=== PATIENT | male | born 1950 | race African-American/Black ===

== ENCOUNTER 2018-04-14 10:43 | Inpatient (IN) ==
[2018-04-14] MEDS ORDERED: ONDANSETRON 4 MG/2 ML VIAL IV PRN (11:23)
[2018-04-14] MEDS ORDERED: PROMETHAZINE 25 MG/1 ML VIAL IM PRN (11:23)
[2018-04-14] MEDS ORDERED: ACETAMINOPHEN 325 MG TABLET PO PRN (11:23)
[2018-04-14 12:04] LABS: Basophils # 0.1 10*3/uL (0.0-0.2); Basophils % 0.3 % (0.0-0.8); Eosinophils # 0.1 10*3/uL (0.0-0.87); Eosinophils % 0.6 % (0.00-10.9); Hematocrit 37.8 VOL% (42.0-52.0); Hemoglobin 12.6 GM/DL (14.0-18.0); Immature Granulocytes % 1.4 %; Immature Granulocytes Absolute 0.28 #; Lymphocytes # 3.1 10*3/uL (1.4-4.0); Lymphocytes % 15.8 % (21.2-54.2); Mean Corpuscular HGB Conc 33.3 GM/DL (32-36); Mean Corpuscular Hemoglobin 29 PG (27-34); Mean Corpuscular Volume 87.7 FL (87-102); Mean Platelet Volume 11.4 FL (9.6-12.0); Monocytes # 1.4 10*3/uL (0.11-0.8); Monocytes % 7.3 % (1.7-12.7); Neutrophils # 14.5 10*3/uL (1.4-7.4); Neutrophils % 74.6 % (38.7-73.9); Platelet Count 401 T/CUMM (130-400); Red Blood Count 4.31 MC/CUMM (3.8-5.5); Red Cell Distribution Width 13.2 % (9.3-17.3); White Blood Count 19.5 T/CUMM (4-12)
[2018-04-14 12:23] LABS: Band Neutrophils 1 % (0-10); Eosinophils 2 % (0-10); Lymphocytes 22 % (20-55); Segmented Neutrophils 70 % (50-85); Total Cells Counted 100
[2018-04-14 12:24] LABS: Hypochromasia 1+; Ovalocytes Slight; Platelet Estimate Increased
[2018-04-14] MEDS ORDERED: GENTAMICIN INJ 160 MG in SODIUM CHLORIDE 0.9% 100 ML IV SCH (12:30)
[2018-04-14 12:37] LABS: Calcium 9.8 MG/DL (8.5-10.1); Osmolality,Calculated 274.4 MOS/KG (273-304); Potassium 3.5 MMOL/L (3.5-5.1)
[2018-04-14] MEDS ORDERED: GLUCAGON 1 MG VIAL IM PRN (14:27)
[2018-04-14] MEDS ORDERED: DEXTROSE 50% 25 GM/50 ML VIAL IV PRN (14:27)
[2018-04-14] MEDS: SODIUM CHLORIDE 0.9% 1,000 ML IV SCH ×2 (14:41→23:47)
[2018-04-14] MEDS: cefTRIAXone 1,000 MG in SYRINGE 1 EACH IV SCH (15:08)
[2018-04-14] MEDS: GENTAMICIN INJ 360 MG in SODIUM CHLORIDE 0.9% 100 ML IV SCH (15:09)
[2018-04-14] MEDS: INSULIN REGULAR 100 UNIT/ML SUBCUT SCH ×2 (17:01→19:59)
[2018-04-14] MEDS: metFORMIN 500 MG TABLET PO SCH (17:01)
[2018-04-14] MEDS: LISINOPRIL 20 MG TABLET PO SCH (17:01)
[2018-04-14] MEDS: SIMVASTATIN 40 MG TABLET PO SCH (20:25)
[2018-04-14] MEDS: TAMSULOSIN 0.4 MG CAPSULE PO SCH (20:25)
[2018-04-15] MEDS: SODIUM CHLORIDE 0.9% 1,000 ML IV SCH ×2 (05:03→13:19)
[2018-04-15 05:34] LABS: Basophils # 0.1 10*3/uL (0.0-0.2); Basophils % 0.4 % (0.0-0.8); Eosinophils # 0.2 10*3/uL (0.0-0.87); Hematocrit 34.3 VOL% (42.0-52.0); Lymphocytes # 3.1 10*3/uL (1.4-4.0); Mean Corpuscular HGB Conc 32.1 GM/DL (32-36); Mean Corpuscular Hemoglobin 28 PG (27-34); Mean Corpuscular Volume 87.7 FL (87-102); Mean Platelet Volume 11.5 FL (9.6-12.0); Monocytes # 1.6 10*3/uL (0.11-0.8); Monocytes % 7.9 % (1.7-12.7); Neutrophils # 14.5 10*3/uL (1.4-7.4); Neutrophils % 73.7 % (38.7-73.9); Platelet Count 419 T/CUMM (130-400); Red Blood Count 3.91 MC/CUMM (3.8-5.5); Red Cell Distribution Width 13.2 % (9.3-17.3); White Blood Count 19.6 T/CUMM (4-12)
[2018-04-15 05:58] LABS: Calcium 9.2 MG/DL (8.5-10.1); Osmolality,Calculated 274.8 MOS/KG (273-304); Potassium 3.3 MMOL/L (3.5-5.1)
[2018-04-15 06:03] LABS: Hypochromasia 1+
[2018-04-15 06:04] LABS: Microcytosis 1+; Platelet Estimate Increased
[2018-04-15] MEDS: INSULIN REGULAR 100 UNIT/ML SUBCUT SCH ×4 (08:28→22:45)
[2018-04-15] MEDS: TAMSULOSIN 0.4 MG CAPSULE PO SCH ×2 (10:09→20:22)
[2018-04-15] MEDS: metFORMIN 500 MG TABLET PO SCH ×2 (10:09→18:14)
[2018-04-15] MEDS: PANTOPRAZOLE 40 MG TABLET PO SCH (10:09)
[2018-04-15] MEDS: hydroCHLOROthiazide 25 MG TABLET PO SCH (10:10)
[2018-04-15] MEDS: KETOROLAC 15 MG/1 ML VIAL IV PRN ×2 (10:11→18:15)
[2018-04-15] MEDS: POTASSIUM CHLORIDE 20 MEQ TABLET PO PRN ×3 (10:18→14:43)
[2018-04-15] MEDS: cefTRIAXone 1,000 MG in SYRINGE 1 EACH IV SCH (13:20)
[2018-04-15] MEDS: GENTAMICIN INJ 360 MG in SODIUM CHLORIDE 0.9% 100 ML IV SCH (14:43)
[2018-04-15] MEDS: LISINOPRIL 20 MG TABLET PO SCH (18:14)
[2018-04-15] MEDS: SIMVASTATIN 40 MG TABLET PO SCH (20:22)
[2018-04-16] MEDS: SODIUM CHLORIDE 0.9% 1,000 ML IV SCH ×3 (01:41→21:20)
[2018-04-16 05:17] LABS: Basophils # 0.1 10*3/uL (0.0-0.2); Basophils % 0.3 % (0.0-0.8); Eosinophils # 0.2 10*3/uL (0.0-0.87); Eosinophils % 1.1 % (0.00-10.9); Hemoglobin 10.7 GM/DL (14.0-18.0); Immature Granulocytes % 0.8 %; Immature Granulocytes Absolute 0.14 #; Lymphocytes # 2.6 10*3/uL (1.4-4.0); Lymphocytes % 15.1 % (21.2-54.2); Mean Corpuscular HGB Conc 32.4 GM/DL (32-36); Mean Corpuscular Hemoglobin 29 PG (27-34); Mean Platelet Volume 10.8 FL (9.6-12.0); Monocytes # 0.9 10*3/uL (0.11-0.8); Neutrophils # 13.4 10*3/uL (1.4-7.4); Neutrophils % 77.7 % (38.7-73.9); Platelet Count 474 T/CUMM (130-400); Red Blood Count 3.75 MC/CUMM (3.8-5.5); Red Cell Distribution Width 13.2 % (9.3-17.3); White Blood Count 17.3 T/CUMM (4-12)
[2018-04-16 05:49] LABS: Osmolality,Calculated 281.3 MOS/KG (273-304); Potassium 3.8 MMOL/L (3.5-5.1)
[2018-04-16] MEDS: INSULIN REGULAR 100 UNIT/ML SUBCUT SCH ×4 (08:37→21:20)
[2018-04-16] MEDS ORDERED: cefTRIAXone 1,000 MG VIAL ONE (14:25)
[2018-04-16] MEDS ORDERED: BACITRACIN OINT 0.9 GM PACK TOP ONE (15:49)
[2018-04-16 16:08] LABS: Apearance,Urine Slightly Hazy (Clear); Bacteria,Urine Occasional /HPF (Few); Bilirubin,Urine Negative (Negative); Blood, Urine Moderate mg/dL (Negative); Glucose,Urine (UA) Negative (Negative); Ketones,Urine 20 mg/dL (Negative); Mucus,Urine Occasional /LPF (Occasional); Nitrite,Urine Negative (Negative); Protein,Urine Negative; RBC,Urine 3 /HPF (0-4); Urine Color Yellow (Yellow); Urine Specific Gravity 1.011 (1.001-1.035); Urine Urobilinogen < 2.0 EU/DL (0.2-1.0); WBC,Urine 51 /HPF (0-6)
[2018-04-16] MEDS ORDERED: ONDANSETRON 4 MG/2 ML VIAL ONE (16:11)
[2018-04-16] MEDS ORDERED: ONDANSETRON 4 MG/2 ML VIAL IV PRN (16:11)
[2018-04-16] MEDS ORDERED: HYDROmorphone 2 MG/1 ML VIAL ONE (16:11)
[2018-04-16] MEDS: HYDROmorphone 2 MG/1 ML VIAL IV PRN ×2 (16:14→16:24)
[2018-04-16] MEDS ORDERED: PROPOFOL 200 MG/20 ML VIAL IV ONE (16:54)
[2018-04-16] MEDS ORDERED: SEVOFLURANE 1 UNIT/15 MINUTE INH ONE (16:54)
[2018-04-16] MEDS ORDERED: KETOROLAC 30 MG/1 ML VIAL ONE (16:54)
[2018-04-16] MEDS ORDERED: fentaNYL 100 MCG/2 ML VIAL ONE (16:54)
[2018-04-16] MEDS ORDERED: MIDAZOLAM 2 MG/2 ML VIAL ONE (16:56)
[2018-04-16] MEDS: TAMSULOSIN 0.4 MG CAPSULE PO SCH ×2 (17:24→20:56)
[2018-04-16] MEDS: metFORMIN 500 MG TABLET PO SCH ×2 (17:24→17:40)
[2018-04-16] MEDS: PANTOPRAZOLE 40 MG TABLET PO SCH (17:24)
[2018-04-16] MEDS: hydroCHLOROthiazide 25 MG TABLET PO SCH (17:24)
[2018-04-16] MEDS: GENTAMICIN INJ 360 MG in SODIUM CHLORIDE 0.9% 100 ML IV SCH (17:39)
[2018-04-16] MEDS: cefTRIAXone 1,000 MG in SYRINGE 1 EACH IV SCH (17:39)
[2018-04-16] MEDS: FLUCONAZOLE 100 MG TABLET PO SCH (17:40)
[2018-04-16] MEDS: LISINOPRIL 20 MG TABLET PO SCH (17:40)
[2018-04-16] MEDS ORDERED: GLUCAGON 1 MG VIAL IM PRN (18:49)
[2018-04-16] MEDS ORDERED: DEXTROSE 50% 25 GM/50 ML VIAL IV PRN (18:49)
[2018-04-16] MEDS: SIMVASTATIN 40 MG TABLET PO SCH (20:56)
[2018-04-17] MEDS: SODIUM CHLORIDE 0.9% 1,000 ML IV SCH ×4 (02:24→19:58)
[2018-04-17 04:38] LABS: Basophils % 0.3 % (0.0-0.8); Eosinophils # 0.3 10*3/uL (0.0-0.87); Eosinophils % 1.6 % (0.00-10.9); Hematocrit 31.2 VOL% (42.0-52.0); Hemoglobin 10.2 GM/DL (14.0-18.0); Immature Granulocytes % 0.6 %; Immature Granulocytes Absolute 0.09 #; Lymphocytes # 1.9 10*3/uL (1.4-4.0); Mean Corpuscular HGB Conc 32.7 GM/DL (32-36); Mean Corpuscular Hemoglobin 29 PG (27-34); Mean Corpuscular Volume 87.6 FL (87-102); Mean Platelet Volume 10.5 FL (9.6-12.0); Monocytes # 0.5 10*3/uL (0.11-0.8); Monocytes % 3.3 % (1.7-12.7); Neutrophils # 12.8 10*3/uL (1.4-7.4); Neutrophils % 82.2 % (38.7-73.9); Platelet Count 491 T/CUMM (130-400); Red Blood Count 3.56 MC/CUMM (3.8-5.5); White Blood Count 15.6 T/CUMM (4-12)
[2018-04-17 05:10] LABS: Calcium 8.4 MG/DL (8.5-10.1); Osmolality,Calculated 273.7 MOS/KG (273-304); Potassium 3.8 MMOL/L (3.5-5.1)
[2018-04-17] MEDS: metFORMIN 500 MG TABLET PO SCH ×2 (09:28→17:28)
[2018-04-17] MEDS: FLUCONAZOLE 100 MG TABLET PO SCH (09:29)
[2018-04-17] MEDS: INSULIN REGULAR 100 UNIT/ML SUBCUT SCH ×4 (09:29→20:37)
[2018-04-17] MEDS: hydroCHLOROthiazide 25 MG TABLET PO SCH (09:29)
[2018-04-17] MEDS: TAMSULOSIN 0.4 MG CAPSULE PO SCH ×2 (09:29→20:37)
[2018-04-17] MEDS: PANTOPRAZOLE 40 MG TABLET PO SCH (09:29)
[2018-04-17] MEDS: CEFEPIME 1,000 MG in SYRINGE 1 EACH IV SCH ×2 (10:05→17:28)
[2018-04-17] MEDS: VANCOMYCIN INJ 1,250 MG in SODIUM CHLORIDE 0.9% 250 ML IV SCH (16:28)
[2018-04-17] MEDS: LISINOPRIL 20 MG TABLET PO SCH (17:28)
[2018-04-17] MEDS: BACITRACIN OINT 0.9 GM PACK TOP SCH (17:28)
[2018-04-17] MEDS: SIMVASTATIN 40 MG TABLET PO SCH (20:37)
[2018-04-18] MEDS: CEFEPIME 1,000 MG in SYRINGE 1 EACH IV SCH ×3 (02:13→17:23)
[2018-04-18] MEDS: VANCOMYCIN INJ 1,250 MG in SODIUM CHLORIDE 0.9% 250 ML IV SCH ×2 (02:13→15:44)
[2018-04-18 04:27] LABS: Basophils # 0.1 10*3/uL (0.0-0.2); Basophils % 0.4 % (0.0-0.8); Eosinophils # 0.5 10*3/uL (0.0-0.87); Eosinophils % 2.6 % (0.00-10.9); Hematocrit 29.8 VOL% (42.0-52.0); Hemoglobin 9.8 GM/DL (14.0-18.0); Immature Granulocytes % 0.5 %; Immature Granulocytes Absolute 0.09 #; Lymphocytes # 1.9 10*3/uL (1.4-4.0); Lymphocytes % 10.7 % (21.2-54.2); Mean Corpuscular HGB Conc 32.9 GM/DL (32-36); Mean Corpuscular Hemoglobin 28 PG (27-34); Mean Corpuscular Volume 86.1 FL (87-102); Mean Platelet Volume 10.4 FL (9.6-12.0); Monocytes # 0.7 10*3/uL (0.11-0.8); Neutrophils # 14.3 10*3/uL (1.4-7.4); Neutrophils % 81.8 % (38.7-73.9); Platelet Count 496 T/CUMM (130-400); Red Blood Count 3.46 MC/CUMM (3.8-5.5); White Blood Count 17.5 T/CUMM (4-12)
[2018-04-18 04:50] LABS: Calcium 8.3 MG/DL (8.5-10.1); Osmolality,Calculated 270.8 MOS/KG (273-304); Potassium 3.3 MMOL/L (3.5-5.1)
[2018-04-18] MEDS: SODIUM CHLORIDE 0.9% 1,000 ML IV SCH ×2 (06:50→15:44)
[2018-04-18] MEDS: INSULIN REGULAR 100 UNIT/ML SUBCUT SCH ×4 (07:45→21:37)
[2018-04-18] MEDS: metFORMIN 500 MG TABLET PO SCH ×2 (09:10→17:23)
[2018-04-18] MEDS: TAMSULOSIN 0.4 MG CAPSULE PO SCH ×2 (09:10→21:36)
[2018-04-18] MEDS: hydroCHLOROthiazide 25 MG TABLET PO SCH (09:10)
[2018-04-18] MEDS: PANTOPRAZOLE 40 MG TABLET PO SCH (09:10)
[2018-04-18] MEDS: FLUCONAZOLE 100 MG TABLET PO SCH (09:10)
[2018-04-18] MEDS: BACITRACIN OINT 0.9 GM PACK TOP SCH (09:10)
[2018-04-18] MEDS: LISINOPRIL 20 MG TABLET PO SCH (17:23)
[2018-04-18] MEDS: SIMVASTATIN 40 MG TABLET PO SCH (21:36)
[2018-04-19] MEDS: SODIUM CHLORIDE 0.9% 1,000 ML IV SCH ×5 (00:01→20:42)
[2018-04-19] MEDS: CEFEPIME 1,000 MG in SYRINGE 1 EACH IV SCH ×3 (02:09→18:33)
[2018-04-19] MEDS: VANCOMYCIN INJ 1,250 MG in SODIUM CHLORIDE 0.9% 250 ML IV SCH (02:14)
[2018-04-19 02:43] LABS: Basophils # 0.1 10*3/uL (0.0-0.2); Basophils % 0.4 % (0.0-0.8); Eosinophils # 0.5 10*3/uL (0.0-0.87); Eosinophils % 4.3 % (0.00-10.9); Hematocrit 28.6 VOL% (42.0-52.0); Hemoglobin 9.4 GM/DL (14.0-18.0); Immature Granulocytes % 0.5 %; Immature Granulocytes Absolute 0.06 #; Lymphocytes # 1.9 10*3/uL (1.4-4.0); Lymphocytes % 15.3 % (21.2-54.2); Mean Corpuscular HGB Conc 32.9 GM/DL (32-36); Mean Corpuscular Hemoglobin 28 PG (27-34); Mean Corpuscular Volume 85.9 FL (87-102); Mean Platelet Volume 10.5 FL (9.6-12.0); Monocytes # 0.6 10*3/uL (0.11-0.8); Monocytes % 4.5 % (1.7-12.7); Neutrophils # 9.4 10*3/uL (1.4-7.4); Platelet Count 512 T/CUMM (130-400); Red Blood Count 3.33 MC/CUMM (3.8-5.5); Red Cell Distribution Width 12.9 % (9.3-17.3); White Blood Count 12.6 T/CUMM (4-12)
[2018-04-19 03:12] LABS: Calcium 8.3 MG/DL (8.5-10.1); Osmolality,Calculated 273.7 MOS/KG (273-304); Potassium 3.2 MMOL/L (3.5-5.1)
[2018-04-19] MEDS: POTASSIUM CHLORIDE 20 MEQ TABLET PO PRN ×4 (04:20→16:29)
[2018-04-19] MEDS: metFORMIN 500 MG TABLET PO SCH ×2 (09:17→17:12)
[2018-04-19] MEDS: PANTOPRAZOLE 40 MG TABLET PO SCH (09:18)
[2018-04-19] MEDS: hydroCHLOROthiazide 25 MG TABLET PO SCH (09:18)
[2018-04-19] MEDS: TAMSULOSIN 0.4 MG CAPSULE PO SCH ×2 (09:18→20:44)
[2018-04-19] MEDS: BACITRACIN OINT 0.9 GM PACK TOP SCH (09:18)
[2018-04-19] MEDS: FLUCONAZOLE 100 MG TABLET PO SCH (09:18)
[2018-04-19] MEDS: INSULIN REGULAR 100 UNIT/ML SUBCUT SCH ×3 (10:49→16:48)
[2018-04-19] MEDS: CIPROFLOXACIN INJ 400 MG in PREMIX 1 EACH IV SCH (16:28)
[2018-04-19] MEDS: LISINOPRIL 20 MG TABLET PO SCH (17:12)
[2018-04-19] MEDS: SIMVASTATIN 40 MG TABLET PO SCH (20:45)
[2018-04-20] MEDS: INSULIN REGULAR 100 UNIT/ML SUBCUT SCH ×4 (01:22→15:43)
[2018-04-20] MEDS: CEFEPIME 1,000 MG in SYRINGE 1 EACH IV SCH ×3 (03:48→17:49)
[2018-04-20] MEDS: CIPROFLOXACIN INJ 400 MG in PREMIX 1 EACH IV SCH ×2 (03:51→14:06)
[2018-04-20 05:31] LABS: Basophils # 0.1 10*3/uL (0.0-0.2); Basophils % 0.5 % (0.0-0.8); Eosinophils # 0.5 10*3/uL (0.0-0.87); Eosinophils % 5.5 % (0.00-10.9); Hemoglobin 9.8 GM/DL (14.0-18.0); Immature Granulocytes % 0.5 %; Immature Granulocytes Absolute 0.05 #; Lymphocytes # 1.8 10*3/uL (1.4-4.0); Lymphocytes % 18.9 % (21.2-54.2); Mean Corpuscular HGB Conc 32.7 GM/DL (32-36); Mean Corpuscular Hemoglobin 29 PG (27-34); Mean Corpuscular Volume 87.5 FL (87-102); Mean Platelet Volume 10.7 FL (9.6-12.0); Monocytes # 0.6 10*3/uL (0.11-0.8); Monocytes % 6.7 % (1.7-12.7); Neutrophils # 6.5 10*3/uL (1.4-7.4); Neutrophils % 67.9 % (38.7-73.9); Platelet Count 537 T/CUMM (130-400); Red Blood Count 3.43 MC/CUMM (3.8-5.5); Red Cell Distribution Width 12.9 % (9.3-17.3); White Blood Count 9.5 T/CUMM (4-12)
[2018-04-20 05:54] LABS: Calcium 8.7 MG/DL (8.5-10.1); Osmolality,Calculated 274.7 MOS/KG (273-304); Potassium 3.7 MMOL/L (3.5-5.1)
[2018-04-20] MEDS: SODIUM CHLORIDE 0.9% 1,000 ML IV SCH ×4 (06:12→17:53)
[2018-04-20] MEDS: metFORMIN 500 MG TABLET PO SCH ×2 (08:04→16:57)
[2018-04-20] MEDS: TAMSULOSIN 0.4 MG CAPSULE PO SCH ×2 (08:04→21:00)
[2018-04-20] MEDS: POTASSIUM CHLORIDE 20 MEQ TABLET PO SCH (08:04)
[2018-04-20] MEDS: BACITRACIN OINT 0.9 GM PACK TOP SCH (08:05)
[2018-04-20] MEDS: PANTOPRAZOLE 40 MG TABLET PO SCH (08:05)
[2018-04-20] MEDS: hydroCHLOROthiazide 25 MG TABLET PO SCH (08:05)
[2018-04-20] MEDS: LISINOPRIL 20 MG TABLET PO SCH (16:58)
[2018-04-20] MEDS: SIMVASTATIN 40 MG TABLET PO SCH (21:00)
[2018-04-21] MEDS: INSULIN REGULAR 100 UNIT/ML SUBCUT SCH ×5 (03:17→21:53)
[2018-04-21] MEDS: CIPROFLOXACIN INJ 400 MG in PREMIX 1 EACH IV SCH (04:07)
[2018-04-21] MEDS: CEFEPIME 1,000 MG in SYRINGE 1 EACH IV SCH (04:07)
[2018-04-21] MEDS: SODIUM CHLORIDE 0.9% 1,000 ML IV SCH ×3 (04:07→21:54)
[2018-04-21 04:23] LABS: Basophils # 0.1 10*3/uL (0.0-0.2); Basophils % 0.7 % (0.0-0.8); Eosinophils # 0.5 10*3/uL (0.0-0.87); Eosinophils % 5.2 % (0.00-10.9); Hemoglobin 10.4 GM/DL (14.0-18.0); Immature Granulocytes % 0.6 %; Immature Granulocytes Absolute 0.05 #; Lymphocytes # 1.8 10*3/uL (1.4-4.0); Lymphocytes % 20.6 % (21.2-54.2); Mean Corpuscular HGB Conc 32.5 GM/DL (32-36); Mean Corpuscular Hemoglobin 28 PG (27-34); Mean Corpuscular Volume 87.2 FL (87-102); Mean Platelet Volume 11.4 FL (9.6-12.0); Monocytes # 0.5 10*3/uL (0.11-0.8); Monocytes % 5.7 % (1.7-12.7); Neutrophils # 5.9 10*3/uL (1.4-7.4); Neutrophils % 67.2 % (38.7-73.9); Platelet Count 442 T/CUMM (130-400); Red Blood Count 3.67 MC/CUMM (3.8-5.5); Red Cell Distribution Width 13.1 % (9.3-17.3); White Blood Count 8.7 T/CUMM (4-12)
[2018-04-21 04:24] LABS: Basophils # 0.1 10*3/uL (0.0-0.2); Basophils % 0.6 % (0.0-0.8); Eosinophils # 0.5 10*3/uL (0.0-0.87); Eosinophils % 5.5 % (0.00-10.9); Hematocrit 31.6 VOL% (42.0-52.0); Hemoglobin 10.4 GM/DL (14.0-18.0); Immature Granulocytes % 0.4 %; Immature Granulocytes Absolute 0.03 #; Lymphocytes # 1.9 10*3/uL (1.4-4.0); Mean Corpuscular HGB Conc 32.9 GM/DL (32-36); Mean Corpuscular Hemoglobin 29 PG (27-34); Mean Corpuscular Volume 86.6 FL (87-102); Mean Platelet Volume 10.1 FL (9.6-12.0); Monocytes # 0.4 10*3/uL (0.11-0.8); Neutrophils # 5.6 10*3/uL (1.4-7.4); Neutrophils % 66.5 % (38.7-73.9); Platelet Count 569 T/CUMM (130-400); Red Blood Count 3.65 MC/CUMM (3.8-5.5); Red Cell Distribution Width 12.9 % (9.3-17.3); White Blood Count 8.4 T/CUMM (4-12)
[2018-04-21 04:43] LABS: Calcium 9.1 MG/DL (8.5-10.1); Osmolality,Calculated 273.7 MOS/KG (273-304); Potassium 3.8 MMOL/L (3.5-5.1)
[2018-04-21 04:45] LABS: % Iron Saturation 15.2 % (18-50)
[2018-04-21 04:54] LABS: Vitamin B12 460 PG/ML (211-911)
[2018-04-21 08:35] LABS: Sedimentation Rate-Westergren 114 MM/HR (0-20)
[2018-04-21] MEDS: TAMSULOSIN 0.4 MG CAPSULE PO SCH ×2 (08:50→21:52)
[2018-04-21] MEDS: metFORMIN 500 MG TABLET PO SCH ×2 (08:50→17:18)
[2018-04-21] MEDS: BACITRACIN OINT 0.9 GM PACK TOP SCH (08:50)
[2018-04-21] MEDS: POTASSIUM CHLORIDE 20 MEQ TABLET PO SCH (08:50)
[2018-04-21] MEDS: hydroCHLOROthiazide 25 MG TABLET PO SCH (08:50)
[2018-04-21] MEDS: PANTOPRAZOLE 40 MG TABLET PO SCH (08:50)
[2018-04-21] MEDS: LEVOFLOXACIN 750 MG TABLET PO SCH (08:51)
[2018-04-21] MEDS: CHOLECALCIFEROL 1,000 UNIT TABLET PO SCH (09:20)
[2018-04-21] MEDS: MAGNESIUM CHLORIDE 64 MG TABLET PO SCH (09:20)
[2018-04-21] MEDS: FERROUS SULFATE ER 140 MG TABLET PO SCH (11:18)
[2018-04-21 11:52] LABS: Hemoglobin A1 (Alkaline) 97.3 % (96.5-98.5); Hemoglobin A2 (Alkaline) 2.7 % (1.5-3.5)
[2018-04-21] MEDS: LISINOPRIL 20 MG TABLET PO SCH (17:18)
[2018-04-21] MEDS: SIMVASTATIN 40 MG TABLET PO SCH (21:52)
[2018-04-22 05:27] LABS: Basophils # 0.1 10*3/uL (0.0-0.2); Basophils % 0.5 % (0.0-0.8); Eosinophils # 0.5 10*3/uL (0.0-0.87); Eosinophils % 5.5 % (0.00-10.9); Hematocrit 29.3 VOL% (42.0-52.0); Hemoglobin 9.5 GM/DL (14.0-18.0); Immature Granulocytes % 0.2 %; Immature Granulocytes Absolute 0.02 #; Lymphocytes # 2.2 10*3/uL (1.4-4.0); Mean Corpuscular HGB Conc 32.4 GM/DL (32-36); Mean Corpuscular Hemoglobin 28 PG (27-34); Mean Corpuscular Volume 86.9 FL (87-102); Mean Platelet Volume 10.7 FL (9.6-12.0); Monocytes # 0.6 10*3/uL (0.11-0.8); Monocytes % 6.1 % (1.7-12.7); Neutrophils # 6.1 10*3/uL (1.4-7.4); Neutrophils % 64.7 % (38.7-73.9); Platelet Count 593 T/CUMM (130-400); Red Blood Count 3.37 MC/CUMM (3.8-5.5); White Blood Count 9.5 T/CUMM (4-12)
[2018-04-22 05:52] LABS: Eosinophils 4 % (0-10); Hypochromasia Slight; Lymphocytes 17 % (20-55); Platelet Estimate Normal; Segmented Neutrophils 77 % (50-85); Total Cells Counted 100
[2018-04-22 05:57] LABS: Calcium 9.1 MG/DL (8.5-10.1); Osmolality,Calculated 271.8 MOS/KG (273-304); Potassium 3.7 MMOL/L (3.5-5.1)
[2018-04-22] MEDS: SODIUM CHLORIDE 0.9% 1,000 ML IV SCH (07:02)
[2018-04-22] MEDS ORDERED: MAGNESIUM SULF RIDER 2 GM in PREMIX 1 EACH IV ONE (09:00)
[2018-04-22] MEDS: INSULIN REGULAR 100 UNIT/ML SUBCUT SCH (09:11)
[2018-04-22] MEDS: LEVOFLOXACIN 750 MG TABLET PO SCH (09:11)
[2018-04-22] MEDS: metFORMIN 500 MG TABLET PO SCH (09:11)
[2018-04-22] MEDS: CHOLECALCIFEROL 1,000 UNIT TABLET PO SCH (09:11)
[2018-04-22] MEDS: TAMSULOSIN 0.4 MG CAPSULE PO SCH (09:11)
[2018-04-22] MEDS: FERROUS SULFATE ER 140 MG TABLET PO SCH (09:11)
[2018-04-22] MEDS: hydroCHLOROthiazide 25 MG TABLET PO SCH (09:11)
[2018-04-22] MEDS: BACITRACIN OINT 0.9 GM PACK TOP SCH (09:11)
[2018-04-22] MEDS: MAGNESIUM CHLORIDE 64 MG TABLET PO SCH (09:11)
[2018-04-22] MEDS: PANTOPRAZOLE 40 MG TABLET PO SCH (09:12)
[2018-04-22] MEDS: POTASSIUM CHLORIDE 20 MEQ TABLET PO SCH (09:12)
[2018-04-22 11:43] VITALS: BP 121/65
== END 2018-04-22 11:55 | disposition home or self-care (01) | DRG 711 ==
LOC: N.5E 11:01
PROVIDERS: ADMIT Surgery; ATTEND Surgery

== ENCOUNTER 2018-11-26 05:22 | Inpatient (IN) ==
[2018-11-18 11:49] LABS: Basophils # 0.1 10*3/uL (0.0-0.2); Basophils % 0.6 % (0.0-0.8); Eosinophils # 0.2 10*3/uL (0.0-0.87); Eosinophils % 2.7 % (0.00-10.9); Hematocrit 38.5 VOL% (42.0-52.0); Hemoglobin 12.7 GM/DL (14.0-18.0); Immature Granulocytes % 0.3 %; Immature Granulocytes Absolute 0.02 #; Lymphocytes # 3.4 10*3/uL (1.4-4.0); Lymphocytes % 43.9 % (21.2-54.2); Mean Corpuscular Volume 89.7 FL (87-102); Mean Platelet Volume 10.9 FL (9.6-12.0); Monocytes % 6.2 % (1.7-12.7); Neutrophils % 46.3 % (38.7-73.9); Platelet Count 241 T/CUMM (130-400); Red Blood Count 4.29 MC/CUMM (3.8-5.5); Red Cell Distribution Width 13.2 % (9.3-17.3); White Blood Count 7.7 T/CUMM (4-12)
[2018-11-18 12:18] LABS: Albumin 3.8 G/DL (3.4-5.0); Bilirubin,Total 0.5 MG/DL (0.2-1.0); Calcium 9.6 MG/DL (8.5-10.1); Osmolality,Calculated 276.4 MOS/KG (273-304)
[2018-11-26] MEDS ORDERED: cefTRIAXone 1,000 MG in SYRINGE 1 EACH IV ONE ×2 (06:00→14:30)
[2018-11-26] MEDS ORDERED: cefTRIAXone 1,000 MG VIAL ONE (06:01)
[2018-11-26] MEDS ORDERED: INDOCYANINE GREEN 25 MG VIAL IV ONE (06:17)
[2018-11-26] MEDS ORDERED: MANNITOL 12.5 GM/50 ML VIAL IV ONE (06:29)
[2018-11-26] MEDS ORDERED: DIAZEPAM 5 MG TABLET PO ONE (06:29)
[2018-11-26] MEDS ORDERED: FAMOTIDINE 20 MG TABLET PO ONE (06:29)
[2018-11-26] MEDS ORDERED: LACTATED RINGERS 1,000 ML IV SCH (06:30)
[2018-11-26] MEDS ORDERED: DIAZEPAM 5 MG TABLET ONE (06:48)
[2018-11-26] MEDS ORDERED: FAMOTIDINE 20 MG TABLET ONE (06:49)
[2018-11-26] MEDS ORDERED: BUPIVACAINE 0.5% 50 ML VIAL ONE (08:03)
[2018-11-26] MEDS ORDERED: SUGAMMADEX 200 MG/2 ML VIAL IV ONE (12:06)
[2018-11-26] MEDS ORDERED: MAGNESIUM HYDROXIDE SUSP 30 ML UDCUP PO PRN (12:35)
[2018-11-26] MEDS ORDERED: LACTULOSE 20 GM/30 ML UDCUP PO PRN (12:35)
[2018-11-26] MEDS ORDERED: HYDROmorphone 2 MG/1 ML VIAL IV PRN (12:35)
[2018-11-26] MEDS ORDERED: PROMETHAZINE 25 MG/1 ML VIAL IM PRN (12:35)
[2018-11-26 12:36] LABS: Apearance,Urine CLEAR (Clear); Bilirubin,Urine Negative (Negative); Blood, Urine Negative (Negative); Glucose,Urine (UA) Negative (Negative); Ketones,Urine Negative (Negative); Mucus,Urine Occasional /LPF (Occasional); Nitrite,Urine Negative (Negative); Protein,Urine Negative; RBC,Urine 1 /HPF (0-4); Squamous Epithelial Cell,Urine Occasional /HPF (0-10); Urine Color Yellow (Yellow); Urine Specific Gravity 1.017 (1.001-1.035); WBC,Urine <1 /HPF (0-6)
[2018-11-26] MEDS ORDERED: ALBUTEROL/IPRATROPIUM 3 ML NEB RESP TX PRN (12:47)
[2018-11-26] MEDS ORDERED: PHENYLEPHRINE DRIP 20 MG/250 ML PREMIX IV ONE (12:53)
[2018-11-26] MEDS ORDERED: PROPOFOL 200 MG/20 ML VIAL IV ONE (12:53)
[2018-11-26] MEDS ORDERED: ONDANSETRON 4 MG/2 ML VIAL ONE (12:54)
[2018-11-26] MEDS ORDERED: ePHEDrine 50 MG/ML AMP ONE (12:54)
[2018-11-26] MEDS ORDERED: DEXAMETHASONE 4 MG/1 ML VIAL ONE (12:54)
[2018-11-26] MEDS ORDERED: PHENYLEPHRINE 1 MG/10 ML SYRINGE IV ONE (12:55)
[2018-11-26] MEDS ORDERED: ROCURONIUM 100 MG/10 ML VIAL IV ONE (12:55)
[2018-11-26] MEDS ORDERED: ACETAMINOPHEN 1,000 MG/100 ML VIAL IV ONE (12:56)
[2018-11-26] MEDS ORDERED: LACTATED RINGERS 2,000 ML IV ONE (12:56)
[2018-11-26] MEDS ORDERED: SEVOFLURANE 1 UNIT/15 MINUTE INH ONE (12:56)
[2018-11-26 13:40] LABS: Basophils % 0.3 % (0.0-0.8); Eosinophils % 0.1 % (0.00-10.9); Hematocrit 41.1 VOL% (42.0-52.0); Hemoglobin 12.9 GM/DL (14.0-18.0); Immature Granulocytes % 0.4 %; Immature Granulocytes Absolute 0.05 #; Lymphocytes # 1.6 10*3/uL (1.4-4.0); Mean Corpuscular HGB Conc 31.4 GM/DL (32-36); Mean Corpuscular Volume 91.1 FL (87-102); Mean Platelet Volume 10.5 FL (9.6-12.0); Monocytes % 2.2 % (1.7-12.7); Platelet Count 233 T/CUMM (130-400); Red Blood Count 4.51 MC/CUMM (3.8-5.5); White Blood Count 13.4 T/CUMM (4-12)
[2018-11-26] MEDS: ONDANSETRON 4 MG/2 ML VIAL IV PRN ×2 (13:55→18:04)
[2018-11-26 13:59] LABS: Calcium 9.4 MG/DL (8.5-10.1); Osmolality,Calculated 279.8 MOS/KG (273-304)
[2018-11-26] MEDS ORDERED: hydrALAZINE 25 MG TABLET PO PRN (14:19)
[2018-11-26] MEDS ORDERED: SIMETHICONE CHEW 80 MG TABLET PO PRN (14:19)
[2018-11-26] MEDS ORDERED: diphenhydrAMINE 50 MG/1 ML VIAL IV PRN (14:19)
[2018-11-26] MEDS: ACETAMINOPHEN 325 MG TABLET PO SCH ×2 (15:10→20:17)
[2018-11-26] MEDS: SODIUM CHLORIDE 0.9% 1,000 ML IV SCH ×2 (15:10→23:03)
[2018-11-26] MEDS ORDERED: DEXTROSE 50% 25 GM/50 ML VIAL IV PRN (15:47)
[2018-11-26] MEDS ORDERED: GLUCAGON 1 MG VIAL IM PRN (15:47)
[2018-11-26] MEDS: LISINOPRIL 20 MG TABLET PO SCH (17:18)
[2018-11-26] MEDS: INSULIN NPH/REGULAR 70/30 100 UNIT/ML SUBCUT SCH (17:18)
[2018-11-26] MEDS: INSULIN REGULAR 100 UNIT/ML SUBCUT SCH ×2 (17:18→20:17)
[2018-11-26] MEDS: DOCUSATE SODIUM 100 MG CAPSULE PO SCH (20:17)
[2018-11-26] MEDS: SIMVASTATIN 40 MG TABLET PO SCH (20:17)
[2018-11-27] MEDS: ACETAMINOPHEN 325 MG TABLET PO SCH ×4 (03:37→21:22)
[2018-11-27 04:44] LABS: Basophils # 0.1 10*3/uL (0.0-0.2); Basophils % 0.5 % (0.0-0.8); Eosinophils # 0.2 10*3/uL (0.0-0.87); Eosinophils % 1.6 % (0.00-10.9); Hematocrit 35.8 VOL% (42.0-52.0); Hemoglobin 11.7 GM/DL (14.0-18.0); Immature Granulocytes % 0.2 %; Immature Granulocytes Absolute 0.02 #; Lymphocytes # 1.5 10*3/uL (1.4-4.0); Lymphocytes % 14.4 % (21.2-54.2); Mean Corpuscular HGB Conc 32.7 GM/DL (32-36); Mean Corpuscular Volume 89.9 FL (87-102); Mean Platelet Volume 11.8 FL (9.6-12.0); Monocytes % 6.4 % (1.7-12.7); Neutrophils % 76.9 % (38.7-73.9); Platelet Count 223 T/CUMM (130-400); Red Blood Count 3.98 MC/CUMM (3.8-5.5); Red Cell Distribution Width 12.9 % (9.3-17.3); White Blood Count 10.2 T/CUMM (4-12)
[2018-11-27 05:16] LABS: Calcium 8.8 MG/DL (8.5-10.1); Osmolality,Calculated 285.1 MOS/KG (273-304)
[2018-11-27] MEDS: SODIUM CHLORIDE 0.9% 1,000 ML IV SCH (07:24)
[2018-11-27] MEDS: INSULIN REGULAR 100 UNIT/ML SUBCUT SCH ×4 (08:38→21:22)
[2018-11-27] MEDS: PANTOPRAZOLE 40 MG TABLET PO SCH (08:38)
[2018-11-27] MEDS: DOCUSATE SODIUM 100 MG CAPSULE PO SCH ×2 (08:38→21:22)
[2018-11-27] MEDS: INSULIN NPH/REGULAR 70/30 100 UNIT/ML SUBCUT SCH ×2 (08:39→17:03)
[2018-11-27] MEDS: LISINOPRIL 20 MG TABLET PO SCH (17:42)
[2018-11-27] MEDS: SIMVASTATIN 40 MG TABLET PO SCH (21:22)
[2018-11-28] MEDS: ACETAMINOPHEN 325 MG TABLET PO SCH ×2 (04:09→09:56)
[2018-11-28 04:44] LABS: Basophils % 0.2 % (0.0-0.8); Eosinophils # 0.4 10*3/uL (0.0-0.87); Eosinophils % 4.5 % (0.00-10.9); Hematocrit 35.5 VOL% (42.0-52.0); Hemoglobin 11.5 GM/DL (14.0-18.0); Immature Granulocytes % 0.4 %; Immature Granulocytes Absolute 0.04 #; Lymphocytes # 1.8 10*3/uL (1.4-4.0); Lymphocytes % 18.7 % (21.2-54.2); Mean Corpuscular HGB Conc 32.4 GM/DL (32-36); Mean Corpuscular Volume 89.6 FL (87-102); Mean Platelet Volume 11.6 FL (9.6-12.0); Monocytes % 5.5 % (1.7-12.7); Neutrophils % 70.7 % (38.7-73.9); Platelet Count 230 T/CUMM (130-400); Red Blood Count 3.96 MC/CUMM (3.8-5.5); Red Cell Distribution Width 12.8 % (9.3-17.3); White Blood Count 9.8 T/CUMM (4-12)
[2018-11-28 05:04] LABS: Calcium 8.6 MG/DL (8.5-10.1); Osmolality,Calculated 282.3 MOS/KG (273-304)
[2018-11-28] MEDS ORDERED: MAGNESIUM SULF RIDER 4 GM in PREMIX 1 EACH IV PRN (07:01)
[2018-11-28] MEDS ORDERED: MAGNESIUM SULF RIDER 2 GM in PREMIX 1 EACH IV PRN (07:01)
[2018-11-28] MEDS ORDERED: POTASSIUM CHLORIDE 20 MEQ TABLET PO ONE (07:02)
[2018-11-28] MEDS ORDERED: MAGNESIUM OXIDE 400 MG TABLET PO ONE (08:45)
[2018-11-28] MEDS: INSULIN REGULAR 100 UNIT/ML SUBCUT SCH (09:50)
[2018-11-28] MEDS: PANTOPRAZOLE 40 MG TABLET PO SCH (09:56)
[2018-11-28] MEDS: DOCUSATE SODIUM 100 MG CAPSULE PO SCH (09:56)
[2018-11-28] MEDS: INSULIN NPH/REGULAR 70/30 100 UNIT/ML SUBCUT SCH (09:56)
[2018-11-28 11:08] VITALS: BP 145/67
== END 2018-11-28 12:15 | disposition home or self-care (01) | DRG 658 ==
LOC: N.PREADM 05:22 → N.SDSINP 05:24 → N.5E 13:57
PROVIDERS: ADMIT Surgery; ATTEND Surgery

== ENCOUNTER 2019-03-17 09:04 | Observation (INO) ==
[2019-03-17 10:40] LABS: Basophils # 0.1 10*3/uL (0.0-0.2); Basophils % 0.8 % (0.0-0.8); Eosinophils # 0.1 10*3/uL (0.0-0.87); Eosinophils % 2.2 % (0.00-10.9); Hematocrit 40.3 VOL% (42.0-52.0); Hemoglobin 13.3 GM/DL (14.0-18.0); Immature Granulocytes % 0.2 %; Immature Granulocytes Absolute 0.01 #; Lymphocytes # 2.6 10*3/uL (1.4-4.0); Lymphocytes % 40.3 % (21.2-54.2); Mean Corpuscular Volume 88.4 FL (87-102); Mean Platelet Volume 11.1 FL (9.6-12.0); Monocytes % 6.3 % (1.7-12.7); Neutrophils % 50.2 % (38.7-73.9); Platelet Count 224 T/CUMM (130-400); Red Blood Count 4.56 MC/CUMM (3.8-5.5); Red Cell Distribution Width 13.4 % (9.3-17.3); White Blood Count 6.4 T/CUMM (4-12)
[2019-03-17 10:48] LABS: PT Patient Result 10.6 SECS (9.6-12.2); Partial Thromboplastin Time 26.4 SECS (20.8-36.0)
[2019-03-17 11:03] LABS: Alanine Aminotransferase 17 U/L (16-61); Albumin 3.7 G/DL (3.4-5.0); Alkaline Phosphatase 92 U/L (45-117); Aspartate Amino Transferase 12 U/L (0-37); Blood Urea Nitrogen 11 MG/DL (7-18); Calcium 9.4 MG/DL (8.5-10.1); Estimated Glom Filtration Rate 94 ML/MIN; Glucose 244 MG/DL (74-106); Osmolality,Calculated 283.5 MOS/KG (273-304)
[2019-03-17] MEDS ORDERED: ONDANSETRON 4 MG/2 ML VIAL IV PRN (11:30)
[2019-03-17] MEDS ORDERED: ACETAMINOPHEN 325 MG TABLET PO PRN (11:30)
[2019-03-17] MEDS ORDERED: PROMETHAZINE 25 MG/1 ML VIAL IM PRN (11:30)
[2019-03-17 12:25] LABS: Apearance,Urine CLEAR (Clear); Bilirubin,Urine Negative (Negative); Blood, Urine Negative (Negative); Glucose,Urine (UA) Negative (Negative); Ketones,Urine 5 mg/dL (Negative); Mucus,Urine Occasional /LPF (Occasional); Nitrite,Urine Negative (Negative); Protein,Urine Negative; RBC,Urine 3 /HPF (0-4); Squamous Epithelial Cell,Urine Occasional /HPF (0-10); Urine Color Yellow (Yellow); Urine Specific Gravity 1.019 (1.001-1.035); WBC,Urine <1 /HPF (0-6)
[2019-03-17 12:30] LABS: Barbiturates Screen,Urine Negative (Negative); Benzodiazepines Screen,Urine Negative (Negative); Cannabinoid Screen,Urine Positive (Negative); Opiate Screen,Urine Negative (Negative); Phencyclidine Screen,Urine Negative (Negative)
[2019-03-17] MEDS ORDERED: DEXTROSE 50% 25 GM/50 ML VIAL IV PRN (12:45)
[2019-03-17] MEDS ORDERED: GLUCAGON 1 MG VIAL IM PRN (12:45)
[2019-03-17 13:04] LABS: Risk Ratio 3.11; Thyroid Stimulating Hormone 0.649 uIU/ml (0.358-3.74)
[2019-03-17] MEDS: SODIUM CHLORIDE 0.9% 1,000 ML IV SCH ×2 (14:54→22:54)
[2019-03-17] MEDS: INSULIN REGULAR 100 UNIT/ML SUBCUT SCH ×2 (18:28→20:08)
[2019-03-17] MEDS ORDERED: ROSUVASTATIN 20 MG TABLET PO SCH (21:00)
[2019-03-18 04:42] LABS: Basophils % 0.5 % (0.0-0.8); Eosinophils # 0.2 10*3/uL (0.0-0.87); Eosinophils % 4.1 % (0.00-10.9); Hematocrit 36.8 VOL% (42.0-52.0); Hemoglobin 12.1 GM/DL (14.0-18.0); Immature Granulocytes % 0.2 %; Immature Granulocytes Absolute 0.01 #; Lymphocytes # 2.5 10*3/uL (1.4-4.0); Lymphocytes % 42.8 % (21.2-54.2); Mean Corpuscular HGB Conc 32.9 GM/DL (32-36); Mean Corpuscular Volume 87.6 FL (87-102); Mean Platelet Volume 11.6 FL (9.6-12.0); Neutrophils % 45.4 % (38.7-73.9); Platelet Count 196 T/CUMM (130-400); Red Cell Distribution Width 13.3 % (9.3-17.3); White Blood Count 5.9 T/CUMM (4-12)
[2019-03-18 05:19] LABS: Calcium 8.8 MG/DL (8.5-10.1); Osmolality,Calculated 281.3 MOS/KG (273-304)
[2019-03-18] MEDS: SODIUM CHLORIDE 0.9% 1,000 ML IV SCH (05:45)
[2019-03-18] MEDS ORDERED: PHENYLEPHRINE 2.5% OPH SOLN 15 ML BOTTLE ONE (06:42)
[2019-03-18] MEDS ORDERED: CYCLOPENTOLATE 1% OPH SOLN 2 ML BOTTLE ONE (06:42)
[2019-03-18] MEDS ORDERED: ASPIRIN EC 81 MG TABLET PO SCH (09:00)
[2019-03-18] MEDS ORDERED: MAGNESIUM SULF RIDER 2 GM in PREMIX 1 EACH IV ONE (11:03)
[2019-03-18 11:37] VITALS: BP 132/93
[2019-03-18] MEDS: INSULIN REGULAR 100 UNIT/ML SUBCUT SCH ×2 (12:10→13:51)
== END 2019-03-18 15:40 | disposition home or self-care (01) ==
LOC: N.EDINP 09:04 → N.ED 09:04 → N.EDINP 12:32 → N.4E 12:48
PROVIDERS: ADMIT Internal Medicine; ATTEND Internal Medicine

== ENCOUNTER 2020-06-09 14:32 | Inpatient (IN) ==
[2020-06-09 15:24] LABS: Basophils % 0.4 % (0.0-0.8); Eosinophils % 0.2 % (0.00-10.9); Hematocrit 38.6 VOL% (42.0-52.0); Hemoglobin 13.1 GM/DL (14.0-18.0); Immature Granulocytes % 0.2 %; Immature Granulocytes Absolute 0.01 #; Lymphocytes # 1.3 10*3/uL (1.4-4.0); Lymphocytes % 26.8 % (21.2-54.2); Mean Corpuscular HGB Conc 33.9 GM/DL (32-36); Mean Corpuscular Volume 86.5 FL (87-102); Mean Platelet Volume 10.2 FL (9.6-12.0); Monocytes % 5.2 % (1.7-12.7); Neutrophils % 67.2 % (38.7-73.9); Platelet Count 174 T/CUMM (130-400); Red Blood Count 4.46 MC/CUMM (3.8-5.5); Red Cell Distribution Width 12.8 % (9.3-17.3); White Blood Count 4.8 T/CUMM (4-12)
[2020-06-09 15:54] LABS: Alanine Aminotransferase 39 U/L (16-61); Albumin 3.8 G/DL (3.4-5.0); Alkaline Phosphatase 72 U/L (45-117); Aspartate Amino Transferase 39 U/L (0-37); Blood Urea Nitrogen 29 MG/DL (7-18); Calcium 9.1 MG/DL (8.5-10.1); Carbon Dioxide 25 MMOL/L (21-32); Estimated Glom Filtration Rate 49 ML/MIN; Glucose 152 MG/DL (74-106); Osmolality,Calculated 274.4 MOS/KG (273-304); Potassium 4.1 MMOL/L (3.5-5.1); Sodium 133 MMOL/L (136-145); Total Protein 8.5 G/DL (6.4-8.3)
[2020-06-09] MEDS ORDERED: ACETAMINOPHEN 500 MG TABLET PO STA (15:58)
[2020-06-09 17:27] LABS: Bilirubin,Urine Negative (Negative); Blood, Urine Negative (Negative); Glucose,Urine (UA) Negative (Negative); Hyaline Casts,Urine 1 /LPF (0-3); Ketones,Urine Negative (Negative); Mucus,Urine Occasional /LPF (Occasional); Nitrite,Urine Negative (Negative); Protein,Urine 100 MG/DL; RBC,Urine 1 /HPF (0-4); Squamous Epithelial Cell,Urine Occasional /HPF (0-10); Urine Appearance CLEAR (Clear); Urine Color Yellow (Yellow); Urine Specific Gravity 1.023 (1.001-1.035); Urine Urobilinogen < 2.0 EU/DL (0.2-1.0); WBC,Urine 1 /HPF (0-6)
[2020-06-09] MEDS ORDERED: SODIUM CHLORIDE 0.9% 2,500 ML IV ONE (17:42)
[2020-06-09] MEDS ORDERED: PIPERACILLIN/TAZOBACTAM 3,375 MG in SODIUM CHLORIDE 0.9% 100 ML IV SCH ×2 (18:00→18:30)
[2020-06-09] MEDS ORDERED: VANCOMYCIN INJ 1,250 MG in SODIUM CHLORIDE 0.9% 250 ML IV SCH (18:30)
[2020-06-09] MEDS ORDERED: MELATONIN 3 MG TABLET PO PRN (18:33)
[2020-06-09] MEDS ORDERED: AZITHROMYCIN INJ 500 MG in SODIUM CHLORIDE 0.9% 250 ML IV ONE (18:33)
[2020-06-09] MEDS ORDERED: DOCUSATE SODIUM 100 MG CAPSULE PO PRN (18:38)
[2020-06-09] MEDS ORDERED: DEXTROSE 50% 25 GM/50 ML VIAL IV PRN (18:38)
[2020-06-09] MEDS ORDERED: DEXAMETHASONE 4 MG/1 ML VIAL IV STA (18:38)
[2020-06-09] MEDS ORDERED: hydrALAZINE 20 MG/1 ML VIAL IV PRN (18:38)
[2020-06-09] MEDS ORDERED: ONDANSETRON 4 MG/2 ML VIAL IV PRN (18:38)
[2020-06-09] MEDS ORDERED: GLUCAGON 1 MG VIAL IM PRN (18:38)
[2020-06-09 19:44] LABS: Ferritin 363.7 ng/ml (26-388)
[2020-06-09] MEDS: ENOXAPARIN 40 MG/0.4 ML SYRINGE SUBCUT SCH (21:45)
[2020-06-09] MEDS: ASCORBIC ACID 500 MG TABLET PO SCH (21:45)
[2020-06-09] MEDS: SODIUM CHLORIDE 0.9% 1,000 ML IV SCH (21:45)
[2020-06-09] MEDS: FAMOTIDINE 20 MG TABLET PO SCH (21:45)
[2020-06-09] MEDS: DOXYCYCLINE HYCLATE INJ 100 MG in SODIUM CHLORIDE 0.9% 100 ML IV SCH (21:45)
[2020-06-09] MEDS: INSULIN REGULAR 100 UNIT/ML SUBCUT SCH (22:08)
[2020-06-10] MEDS: PIPERACILLIN/TAZOBACTAM 3,375 MG in SODIUM CHLORIDE 0.9% 100 ML IV SCH ×4 (00:05→22:48)
[2020-06-10] MEDS: ALBUTEROL INHALER 18 GM INH SCH ×4 (01:16→19:54)
[2020-06-10] MEDS: ACETAMINOPHEN 325 MG TABLET PO PRN ×2 (02:05→09:00)
[2020-06-10] MEDS: SODIUM CHLORIDE 0.9% 1,000 ML IV SCH ×3 (03:40→20:21)
[2020-06-10] MEDS: VANCOMYCIN INJ 1,250 MG in SODIUM CHLORIDE 0.9% 250 ML IV SCH (03:57)
[2020-06-10 05:11] LABS: Basophils % 0.4 % (0.0-0.8); Hematocrit 36.7 VOL% (42.0-52.0); Hemoglobin 12.2 GM/DL (14.0-18.0); Immature Granulocytes % 0.4 %; Immature Granulocytes Absolute 0.01 #; Lymphocytes # 0.9 10*3/uL (1.4-4.0); Lymphocytes % 32.7 % (21.2-54.2); Mean Corpuscular HGB Conc 33.2 GM/DL (32-36); Mean Corpuscular Volume 88.6 FL (87-102); Mean Platelet Volume 11.3 FL (9.6-12.0); Monocytes % 3.8 % (1.7-12.7); Neutrophils % 62.7 % (38.7-73.9); Platelet Count 162 T/CUMM (130-400); Red Blood Count 4.14 MC/CUMM (3.8-5.5); Red Cell Distribution Width 12.8 % (9.3-17.3); White Blood Count 2.6 T/CUMM (4-12)
[2020-06-10 05:40] LABS: Calcium 8.1 MG/DL (8.5-10.1); Osmolality,Calculated 283.8 MOS/KG (273-304); Potassium 4.5 MMOL/L (3.5-5.1)
[2020-06-10 06:15] LABS: Lymphocytes 29 % (20-55); Platelet Estimate Normal; Segmented Neutrophils 70 % (50-85); Total Cells Counted 100
[2020-06-10] MEDS: INSULIN REGULAR 100 UNIT/ML SUBCUT SCH ×5 (08:51→20:23)
[2020-06-10] MEDS: ASPIRIN EC 81 MG TABLET PO SCH (08:52)
[2020-06-10] MEDS: DEXAMETHASONE 4 MG/1 ML VIAL IV SCH (08:52)
[2020-06-10] MEDS: CHOLECALCIFEROL 1,000 UNIT TABLET PO SCH (08:53)
[2020-06-10] MEDS: ZINC GLUCONATE 50 MG TABLET PO SCH (08:53)
[2020-06-10] MEDS: DOXYCYCLINE HYCLATE INJ 100 MG in SODIUM CHLORIDE 0.9% 100 ML IV SCH ×2 (08:53→20:23)
[2020-06-10] MEDS: buPROPion XL 150 MG TABLET PO SCH (08:53)
[2020-06-10] MEDS: CYANOCOBALAMIN 500 MCG TABLET PO SCH (08:53)
[2020-06-10] MEDS: MAGNESIUM OXIDE 400 MG TABLET PO SCH (08:53)
[2020-06-10] MEDS: ASCORBIC ACID 500 MG TABLET PO SCH ×2 (08:53→20:23)
[2020-06-10] MEDS: INSULIN NPH/REGULAR 70/30 100 UNIT/ML SUBCUT SCH (08:53)
[2020-06-10] MEDS: FAMOTIDINE 20 MG TABLET PO SCH ×2 (08:53→20:23)
[2020-06-10] MEDS: CETIRIZINE 10 MG TABLET PO SCH (08:54)
[2020-06-10] MEDS: SIMVASTATIN 40 MG TABLET PO SCH (08:54)
[2020-06-10] MEDS: ENOXAPARIN 40 MG/0.4 ML SYRINGE SUBCUT SCH (20:23)
[2020-06-11] MEDS: ALBUTEROL INHALER 18 GM INH SCH ×4 (01:33→18:23)
[2020-06-11] MEDS: VANCOMYCIN INJ 1,250 MG in SODIUM CHLORIDE 0.9% 250 ML IV SCH (03:50)
[2020-06-11] MEDS: PIPERACILLIN/TAZOBACTAM 3,375 MG in SODIUM CHLORIDE 0.9% 100 ML IV SCH ×3 (05:51→23:55)
[2020-06-11] MEDS: SODIUM CHLORIDE 0.9% 1,000 ML IV SCH ×3 (07:05→18:23)
[2020-06-11] MEDS: INSULIN REGULAR 100 UNIT/ML SUBCUT SCH ×4 (09:15→20:41)
[2020-06-11] MEDS: CHOLECALCIFEROL 1,000 UNIT TABLET PO SCH (10:53)
[2020-06-11] MEDS: ASCORBIC ACID 500 MG TABLET PO SCH ×2 (10:54→20:43)
[2020-06-11] MEDS: MAGNESIUM OXIDE 400 MG TABLET PO SCH (10:54)
[2020-06-11] MEDS: FAMOTIDINE 20 MG TABLET PO SCH ×2 (10:54→20:43)
[2020-06-11] MEDS: CYANOCOBALAMIN 500 MCG TABLET PO SCH (10:54)
[2020-06-11] MEDS: buPROPion XL 150 MG TABLET PO SCH (10:54)
[2020-06-11] MEDS: ASPIRIN EC 81 MG TABLET PO SCH (10:54)
[2020-06-11] MEDS: CETIRIZINE 10 MG TABLET PO SCH (10:55)
[2020-06-11] MEDS: ZINC GLUCONATE 50 MG TABLET PO SCH (10:55)
[2020-06-11] MEDS: SIMVASTATIN 40 MG TABLET PO SCH (10:55)
[2020-06-11] MEDS: INSULIN NPH/REGULAR 70/30 100 UNIT/ML SUBCUT SCH (10:56)
[2020-06-11] MEDS: DEXAMETHASONE 4 MG/1 ML VIAL IV SCH (10:56)
[2020-06-11] MEDS: DOXYCYCLINE HYCLATE INJ 100 MG in SODIUM CHLORIDE 0.9% 100 ML IV SCH ×2 (12:01→20:43)
[2020-06-11] MEDS: ENOXAPARIN 40 MG/0.4 ML SYRINGE SUBCUT SCH (20:43)
[2020-06-12] MEDS: ALBUTEROL INHALER 18 GM INH SCH ×3 (00:07→13:40)
[2020-06-12] MEDS: SODIUM CHLORIDE 0.9% 1,000 ML IV SCH ×2 (05:01→12:01)
[2020-06-12 05:15] LABS: Basophils % 0.2 % (0.0-0.8); Hemoglobin 11.9 GM/DL (14.0-18.0); Immature Granulocytes % 0.2 %; Immature Granulocytes Absolute 0.01 #; Lymphocytes # 1.6 10*3/uL (1.4-4.0); Lymphocytes % 31.6 % (21.2-54.2); Mean Corpuscular Volume 87.1 FL (87-102); Mean Platelet Volume 11.9 FL (9.6-12.0); Monocytes % 3.8 % (1.7-12.7); Neutrophils % 64.2 % (38.7-73.9); Platelet Count 168 T/CUMM (130-400); Red Blood Count 4.02 MC/CUMM (3.8-5.5); Red Cell Distribution Width 12.5 % (9.3-17.3); White Blood Count 5.1 T/CUMM (4-12)
[2020-06-12 05:51] LABS: Bilirubin,Total 0.8 MG/DL (0.2-1.0); Calcium 8.2 MG/DL (8.5-10.1); Osmolality,Calculated 268.2 MOS/KG (273-304); Potassium 3.8 MMOL/L (3.5-5.1)
[2020-06-12] MEDS: PIPERACILLIN/TAZOBACTAM 3,375 MG in SODIUM CHLORIDE 0.9% 100 ML IV SCH ×2 (06:25→15:12)
[2020-06-12] MEDS: INSULIN REGULAR 100 UNIT/ML SUBCUT SCH ×2 (08:24→12:37)
[2020-06-12] MEDS: SIMVASTATIN 40 MG TABLET PO SCH (09:20)
[2020-06-12] MEDS: CHOLECALCIFEROL 1,000 UNIT TABLET PO SCH (09:20)
[2020-06-12] MEDS: ZINC GLUCONATE 50 MG TABLET PO SCH (09:20)
[2020-06-12] MEDS: MAGNESIUM OXIDE 400 MG TABLET PO SCH (09:20)
[2020-06-12] MEDS: ASPIRIN EC 81 MG TABLET PO SCH (09:20)
[2020-06-12] MEDS: buPROPion XL 150 MG TABLET PO SCH (09:20)
[2020-06-12] MEDS: CYANOCOBALAMIN 500 MCG TABLET PO SCH (09:20)
[2020-06-12] MEDS: INSULIN NPH/REGULAR 70/30 100 UNIT/ML SUBCUT SCH (09:21)
[2020-06-12] MEDS: DEXAMETHASONE 4 MG/1 ML VIAL IV SCH (09:21)
[2020-06-12] MEDS: FAMOTIDINE 20 MG TABLET PO SCH (09:22)
[2020-06-12] MEDS ORDERED: BUDESONIDE/FORMOTEROL 160-4.5 INHALER 6 GM INH SCH (09:30)
[2020-06-12] MEDS: CETIRIZINE 10 MG TABLET PO SCH (11:48)
[2020-06-12] MEDS: ASCORBIC ACID 500 MG TABLET PO SCH (11:48)
[2020-06-12] MEDS: DOXYCYCLINE HYCLATE INJ 100 MG in SODIUM CHLORIDE 0.9% 100 ML IV SCH (11:48)
[2020-06-12] MEDS ORDERED: IPRATROPIUM/ALBUTEROL INHALER INH SCH (13:00)
[2020-06-12 13:10] VITALS: BP 127/61
== END 2020-06-12 15:30 | disposition home or self-care (01) | DRG 190 ==
LOC: N.ED 14:32 → N.EDINP 14:32 → N.2E 20:25
PROVIDERS: ADMIT Internal Medicine; ATTEND Internal Medicine